=== PATIENT | male | born 1990 | race Caucasian/White ===

== ENCOUNTER 2016-08-21 08:00 | Outpatient (CLI) | payer MEDICARE, MEDICAID | END 2016-08-21 08:01 | disposition home or self-care (01) | DX: Z79.01 Long term (current) use of anticoagulants (principal) ==

== ENCOUNTER 2016-09-18 08:00 | Outpatient (CLI) | payer MEDICARE, MEDICAID | END 2016-09-18 08:01 | disposition home or self-care (01) | DX: I42.9 Cardiomyopathy, unspecified (principal) ==

== ENCOUNTER 2016-09-18 13:21 | Outpatient (CLI) | payer MEDICARE, MEDICAID | END 2016-09-18 13:22 | disposition home or self-care (01) | DX: E29.1 Testicular hypofunction (principal); R39.12 Poor urinary stream; Z79.01 Long term (current) use of anticoagulants ==

== ENCOUNTER 2016-10-16 14:51 | Outpatient (CLI) | payer MEDICARE, MEDICAID | END 2016-10-16 14:52 | disposition home or self-care (01) | DX: Z79.01 Long term (current) use of anticoagulants (principal) ==

== ENCOUNTER 2016-11-19 14:40 | Outpatient (CLI) | payer MEDICARE, MEDICAID | END 2016-11-19 23:59 | DX: I42.9 Cardiomyopathy, unspecified (principal); Z79.01 Long term (current) use of anticoagulants ==

== ENCOUNTER 2016-11-19 14:44 | Outpatient (CLI) | payer MEDICARE, MEDICAID | END 2016-11-19 23:59 | DX: Z79.01 Long term (current) use of anticoagulants (principal) ==

== ENCOUNTER 2016-12-11 14:43 | Outpatient (CLI) | payer MEDICARE, MEDICAID | END 2016-12-11 14:44 | disposition home or self-care (01) | DX: Z79.01 Long term (current) use of anticoagulants (principal) ==

== ENCOUNTER 2017-01-08 14:25 | Outpatient (CLI) | payer MEDICARE, MEDICAID | END 2017-01-08 14:26 | disposition home or self-care (01) | LOC: LAB.N 14:25 | PROVIDERS: ATTEND Nurse Practitioner Gerontology | DX: Z79.01 Long term (current) use of anticoagulants (principal) | CPT/HCPCS: 85610 ==

== ENCOUNTER 2017-01-22 14:51 | Outpatient (CLI) | payer MEDICARE, MEDICAID ==
[2017-01-22 19:12] LABS: BASOPHILS % (AUTO) 0.1 %; EOSINOPHILS # (AUTO) 0.1 10^3/uL (0.0-0.7); EOSINOPHILS % (AUTO) 1.9 %; HCT - HEMATOCRIT 45.8 % (42.0-52.0); HGB - HEMOGLOBIN 15.5 g/dL (14.0-18.0); LYMPHOCYTES # (AUTO) 3.5 10^3/uL (1.5-3.5); LYMPHOCYTES % (AUTO) 46.1 %; MEAN CORPUSCULAR HEMOGLOBIN 30.3 pg (27.0-31.0); MEAN CORPUSCULAR HGB CONC 33.9 g/dL (32.0-36.0); MEAN CORPUSCULAR VOLUME 89.3 fL (80.0-94.0); MEAN PLATELET VOLUME 9.3 fL (7.4-11.4); MONOCYTES # (AUTO) 0.5 10^3/uL (0.0-1.0); MONOCYTES % (AUTO) 6.9 %; NEUTROPHILS # (AUTO) 3.4 10^3/uL (1.5-6.6); NUCLEATED RED BLOOD CELLS AUTO 0.1 /100WBC; RED BLOOD COUNT 5.12 10^6/uL (4.70-6.10); RED CELL DISTRIBUTION WIDTH 13.4 % (12.0-15.0); UNCORRECTED WHITE BLOOD COUNT 7.5 x10^3/uL; WHITE BLOOD COUNT 7.5 x10^3/uL (4.8-10.8)
[2017-01-22 19:42] LABS: ALBUMIN/GLOBULIN RATIO 1.5 (1.0-2.2); BILIRUBIN,TOTAL 0.7 mg/dL (0.2-1.0); BUN - BLOOD UREA NITROGEN 11 mg/dL (6-20); CALCIUM 9.3 mg/dL (8.5-10.3); CARBON DIOXIDE - CO2 27 mmol/L (21-32); CHLORIDE 104 mmol/L (101-111); CHOL/HDL RATIO 5.4 (<5.0); CHOLESTEROL 177 mg/dL; CREATININE 0.9 mg/dL (0.6-1.2); GFR - MDRD 101 (>89); GLUCOSE 100 mg/dL (70-100); HDL CHOLESTEROL 33 mg/dL; LDL/HDL RATIO 2.5 (<3.6); POTASSIUM 3.8 mmol/L (3.5-5.0); SODIUM 139 mmol/L (135-145); TOTAL PROTEIN 7.7 g/dL (6.7-8.2); TRIGLYCERIDES 302 mg/dL; VLDL CHOLESTEROL 60 mg/dL
== END 2017-01-22 23:59 | disposition home or self-care (01) ==
LOC: LAB.N 14:51
PROVIDERS: ATTEND Nurse Practitioner Gerontology
DX: Z79.01 Long term (current) use of anticoagulants (principal); E78.2 Mixed hyperlipidemia
CPT/HCPCS: 36415; 80053; 80061; 84403; 85025

== ENCOUNTER 2017-02-09 09:29 | Outpatient (CLI) | payer MEDICARE, MEDICAID | END 2017-02-09 23:59 | DX: Z79.01 Long term (current) use of anticoagulants (principal) ==

== ENCOUNTER 2017-02-24 15:23 | Outpatient (CLI) | payer MEDICARE, MEDICAID | END 2017-02-24 15:24 | LOC: LAB.N 15:23 | PROVIDERS: ATTEND Nurse Practitioner Gerontology | DX: Z79.01 Long term (current) use of anticoagulants (principal) | CPT/HCPCS: 85610 ==

== ENCOUNTER 2017-03-11 14:44 | Outpatient (CLI) | payer MEDICARE, MEDICAID | END 2017-03-11 14:45 | LOC: LAB.N 14:44 | PROVIDERS: ATTEND Nurse Practitioner Gerontology | DX: Z79.01 Long term (current) use of anticoagulants (principal) | CPT/HCPCS: 85610 ==

== ENCOUNTER 2017-03-25 15:27 | Outpatient (CLI) | payer MEDICARE, MEDICAID | END 2017-03-25 15:28 | disposition home or self-care (01) | LOC: LAB.N 15:27 | PROVIDERS: ATTEND Nurse Practitioner Gerontology | DX: Z79.01 Long term (current) use of anticoagulants (principal) | CPT/HCPCS: 85610 ==

== ENCOUNTER 2017-04-12 06:54 | Outpatient (CLI) | payer MEDICARE, MEDICAID | END 2017-04-12 06:55 | disposition home or self-care (01) | LOC: LAB.N 06:54 | PROVIDERS: ATTEND Nurse Practitioner Gerontology | DX: Z79.01 Long term (current) use of anticoagulants (principal) | CPT/HCPCS: 85610 ==

== ENCOUNTER 2017-05-12 15:03 | Outpatient (CLI) | payer MEDICARE, MEDICAID ==
[2017-05-12 14:19] LABS: CHOL/HDL RATIO 4.1 (<5.0); CHOLESTEROL 148 mg/dL; HDL CHOLESTEROL 36 mg/dL; LDL/HDL RATIO 2.3 (<3.6); TRIGLYCERIDES 147 mg/dL; VLDL CHOLESTEROL 29 mg/dL
== END 2017-05-12 15:04 | disposition home or self-care (01) ==
LOC: LAB.N 15:03
PROVIDERS: ATTEND Nurse Practitioner Gerontology
DX: E78.1 Pure hyperglyceridemia (principal); E29.1 Testicular hypofunction; Z79.01 Long term (current) use of anticoagulants
CPT/HCPCS: 36415; 80061; 84403; 85610

== ENCOUNTER 2017-05-28 08:08 | Outpatient (CLI) | payer MEDICARE, MEDICAID ==
[2017-05-28 13:48] LABS: CALCIUM 9.4 mg/dL (8.5-10.3); POTASSIUM 3.9 mmol/L (3.5-5.0)
== END 2017-05-28 08:09 | disposition home or self-care (01) ==
LOC: LAB.N 08:08
PROVIDERS: ATTEND Internal Medicine Cardiovascular Disease
DX: I42.8 Other cardiomyopathies (principal); Z79.01 Long term (current) use of anticoagulants
CPT/HCPCS: 36415; 80048; 85610

== ENCOUNTER 2017-06-23 10:04 | Outpatient (CLI) | payer MEDICARE, MEDICAID | END 2017-06-23 10:05 | disposition home or self-care (01) | LOC: LAB.N 10:04 | PROVIDERS: ATTEND Nurse Practitioner Gerontology | DX: Z79.01 Long term (current) use of anticoagulants (principal) | CPT/HCPCS: 85610 ==

== ENCOUNTER 2017-07-12 08:00 | Outpatient (CLI) | payer MEDICARE, MEDICAID | END 2017-07-12 08:01 | disposition home or self-care (01) | LOC: LAB.N 08:00 | PROVIDERS: ATTEND Nurse Practitioner Gerontology | DX: Z79.01 Long term (current) use of anticoagulants (principal) | CPT/HCPCS: 85610 ==

== ENCOUNTER 2017-08-20 10:30 | Outpatient (CLI) | payer MEDICARE, MEDICAID | END 2017-08-20 10:31 | disposition home or self-care (01) | LOC: LAB.N 10:30 | PROVIDERS: ATTEND Nurse Practitioner Gerontology | DX: Z79.01 Long term (current) use of anticoagulants (principal) | CPT/HCPCS: 85610 ==

== ENCOUNTER 2017-09-16 08:00 | Outpatient (CLI) | payer MEDICAID | END 2017-09-16 08:01 | disposition home or self-care (01) | LOC: LAB.N 08:00 | PROVIDERS: ATTEND Nurse Practitioner Gerontology | DX: Z79.01 Long term (current) use of anticoagulants (principal) | CPT/HCPCS: 85610 ==

== ENCOUNTER 2017-09-27 08:00 | Outpatient (CLI) | payer MEDICARE, MEDICAID | END 2017-09-27 08:01 | disposition home or self-care (01) | LOC: LAB.N 08:00 | PROVIDERS: ATTEND Nurse Practitioner Gerontology | DX: Z79.01 Long term (current) use of anticoagulants (principal) | CPT/HCPCS: 85610 ==

== ENCOUNTER 2017-10-21 09:51 | Outpatient (CLI) | payer MEDICARE, MEDICAID | END 2017-10-21 09:52 | disposition home or self-care (01) | LOC: LAB.N 09:51 | PROVIDERS: ATTEND Nurse Practitioner Gerontology | DX: Z79.01 Long term (current) use of anticoagulants (principal) | CPT/HCPCS: 85610 ==

== ENCOUNTER 2017-11-12 08:00 | Outpatient (CLI) | payer MEDICARE, MEDICAID | END 2017-11-12 08:01 | disposition home or self-care (01) | LOC: LAB.N 08:00 | PROVIDERS: ATTEND Nurse Practitioner Gerontology | DX: Z79.01 Long term (current) use of anticoagulants (principal) | CPT/HCPCS: 85610 ==

== ENCOUNTER 2017-12-08 14:25 | Outpatient (CLI) | payer MEDICARE, MEDICAID | END 2017-12-08 14:26 | LOC: LAB.N 14:25 | PROVIDERS: ATTEND Nurse Practitioner Gerontology | DX: Z79.01 Long term (current) use of anticoagulants (principal) | CPT/HCPCS: 85610 ==

== ENCOUNTER 2017-12-13 14:01 | Outpatient (CLI) | payer MEDICARE, MEDICAID ==
[2017-12-13 18:56] LABS: BASOPHILS % (AUTO) 0.2 %; EOSINOPHILS # (AUTO) 0.3 10^3/uL (0.0-0.7); EOSINOPHILS % (AUTO) 4.8 %; HGB - HEMOGLOBIN 15.1 g/dL (14.0-18.0); LYMPHOCYTES # (AUTO) 2.8 10^3/uL (1.5-3.5); LYMPHOCYTES % (AUTO) 46.1 %; MEAN CORPUSCULAR HEMOGLOBIN 30.4 pg (27.0-31.0); MEAN CORPUSCULAR HGB CONC 33.4 g/dL (32.0-36.0); MEAN CORPUSCULAR VOLUME 91.1 fL (80.0-94.0); MEAN PLATELET VOLUME 9.6 fL (7.4-11.4); MONOCYTES # (AUTO) 0.5 10^3/uL (0.0-1.0); MONOCYTES % (AUTO) 7.4 %; NEUTROPHILS # (AUTO) 2.6 10^3/uL (1.5-6.6); NEUTROPHILS % (AUTO) 41.5 %; PLT - PLATELET COUNT 147 10^3/uL (130-450); RED BLOOD COUNT 4.97 10^6/uL (4.70-6.10); RED CELL DISTRIBUTION WIDTH 13.1 % (12.0-15.0); WHITE BLOOD COUNT 6.2 x10^3/uL (4.8-10.8)
[2017-12-13 19:28] LABS: ALBUMIN 4.7 g/dL (3.2-5.5); ALBUMIN/GLOBULIN RATIO 1.4 (1.0-2.2); BILIRUBIN,TOTAL 0.9 mg/dL (0.2-1.0); CALCIUM 9.4 mg/dL (8.5-10.3)
== END 2017-12-13 14:02 ==
LOC: LAB.N 14:01
PROVIDERS: ATTEND Nurse Practitioner Gerontology
DX: E78.1 Pure hyperglyceridemia (principal); Z79.899 Other long term (current) drug therapy; E78.2 Mixed hyperlipidemia; Z13.9 Encounter for screening, unspecified; E29.1 Testicular hypofunction
CPT/HCPCS: 36415; 80053; 84403; 85025

== ENCOUNTER 2018-01-06 14:04 | Outpatient (CLI) | payer MEDICARE, MEDICAID | END 2018-01-06 14:05 | disposition home or self-care (01) | LOC: LAB.N 14:04 | PROVIDERS: ATTEND Nurse Practitioner Gerontology | DX: Z79.01 Long term (current) use of anticoagulants (principal) | CPT/HCPCS: 85610 ==

== ENCOUNTER 2018-02-07 08:00 | Outpatient (CLI) | payer MEDICARE, MEDICAID | END 2018-02-07 08:01 | disposition home or self-care (01) | LOC: LAB.N 08:00 | PROVIDERS: ATTEND Nurse Practitioner Gerontology | DX: Z79.01 Long term (current) use of anticoagulants (principal) | CPT/HCPCS: 85610 ==

== ENCOUNTER 2018-03-09 08:00 | Outpatient (CLI) | payer MEDICARE, MEDICAID | END 2018-03-09 08:01 | disposition home or self-care (01) | LOC: LAB.N 08:00 | PROVIDERS: ATTEND Nurse Practitioner Gerontology | DX: Z79.01 Long term (current) use of anticoagulants (principal) | CPT/HCPCS: 85610 ==

== ENCOUNTER 2018-04-08 15:07 | Outpatient (CLI) | payer MEDICARE, MEDICAID | END 2018-04-08 15:08 | disposition home or self-care (01) | LOC: LAB.N 15:07 | PROVIDERS: ATTEND Nurse Practitioner Gerontology | DX: Z79.01 Long term (current) use of anticoagulants (principal) | CPT/HCPCS: 85610 ==